=== PATIENT | female | born 1930 | race Caucasian/White ===

== ENCOUNTER → 2018-10-16 | Outpatient (CLI) | payer MEDICARE ==
[~2018-10-16] MED LIST: ALBU0.63 IH; ASPI-1012 PO; CALC-866 PO; CELE200 PO; FISH1CAP27 PO; FURO-151 PO; GABA-533 PO; IRON PO; METH10TA2 PO; METO25TA6 PO; MULT1TAB70 PO; NITR0.4T SL; OXYC30TA89 PO; POLY17PO4 PO; POTASSIUM CLORIDE PO; RANI300T7 PO; SIMV10TA6 PO; TIOT18CA3 IH; TRAM50TA4 PO
[2018-10-16 15:28] LABS: ALBUMIN 3.1 g/dL (3.5-5.0); BILIRUBIN,TOTAL 0.3 mg/dL (0.2-1.0); CREATININE 1.3 mg/dL (0.5-1.5); TOTAL PROTEIN, SERUM 7.7 g/dL (6.0-8.3)
== END | disposition home or self-care (01) ==
LOC: LAB 14:48
PROVIDERS: ATTEND Family Medicine
DX: K76.89 Other specified diseases of liver (principal); R16.0 Hepatomegaly, not elsewhere classified
CPT/HCPCS: 36415; 80053; 82105; 86682

== ENCOUNTER → 2020-06-18 | Outpatient (CLI) | payer MEDICARE ==
[~2020-06-18] VITALS: Ht 154.9 cm; Wt 113.6 kg
[~2020-06-18] MED LIST changes: +CEFAZOLIN SODIUM 1 GM VIAL IVP SCH; +MULT-660 PO; -MULT1TAB70 PO; +OXYC30TA2 PO; -OXYC30TA89 PO; -SIMV10TA6 PO; +SIMV10TA97 PO
[2020-06-18 11:31] LABS: BASOPHILS % (AUTO) 0.2 % (0.0-5.0); EOSINOPHILS % (AUTO) 2.3 % (0.0-8.0); HEMATOCRIT 37.2 % (36-48); LYMPHOCYTES % (AUTO) 24.1 % (21.0-51.0); MEAN CORPUSCULAR HGB CONC 31.2 g/dL (32.0-36.0); MEAN CORPUSCULAR VOLUME 96.1 fL (79-99); MONOCYTES % (AUTO) 8.4 % (3.0-13.0); NEUTROPHILS % (AUTO) 64.4 % (40.0-77.0); PLATELET COUNT (AUTO) 166 K/uL (130-400); RED BLOOD CELL COUNT(AUTO) 3.87 MIL/uL (4.00-5.50); RED CELL DISTRIBUTION WIDTH 12.4 % (11.0-15.5); WHITE BLOOD COUNT (AUTO) 5.1 K/uL (4.8-10.8)
[2020-06-18 11:38] LABS: APPEARANCE,URINE SL CLOUDY (CLEAR); BILIRUBIN,URINE NEGATIVE (NEGATIVE); COLOR,URINE YELLOW (YELLOW); GLUCOSE, URINE (UA) NEGATIVE (NEGATIVE); KETONES,URINE NEGATIVE (NEGATIVE); LEUKOCYTE ESTERASE ,URINE MODERATE (NEGATIVE); NITRATE,URINE POSITIVE (NEGATIVE); OCCULT BLOOD,URINE SMALL (NEGATIVE); PH,URINE 6.5 (5.0-8.0); PROTEIN,URINE NEGATIVE (NEGATIVE); UROBILINOGEN,URINE 0.2 mg/dL (0.2-1.0)
[2020-06-18 11:42] LABS: CREATININE 1.3 mg/dL (0.5-1.5); POTASSIUM 3.5 mmol/L (3.5-5.1)
[2020-06-18 12:22] LABS: BACTERIA,URINE Moderate /HPF (None Seen); WBC,URINE 26-50 /HPF (0-1)
[2020-06-18 12:23] LABS: INR 1.1 (0.85-1.15); PROTHROMBIN TIME 11.7 SEC (9.6-11.6)
[2020-06-24 09:36] VITALS: BP 170/90
== END | disposition home or self-care (01) ==
LOC: EDSTATUS 09:00 → DAH 10:00
PROVIDERS: ATTEND Orthopaedic Surgery
DX: I44.7 Left bundle-branch block, unspecified (principal); Z20.828 Contact with and (suspected) exposure to other viral communicable diseases; G89.29 Other chronic pain
CPT/HCPCS: 36415; 80048; 81001; 85025; 85610; 87077; 87088; 87186; 87641; 93005; U0003; J0690

== ENCOUNTER 2020-09-17 07:35 | Inpatient (IN) | payer MEDICARE ==
[2020-09-16 10:41] LABS: BASOPHILS % (AUTO) 0.2 % (0.0-5.0); EOSINOPHILS % (AUTO) 2.4 % (0.0-8.0); HEMATOCRIT 37.1 % (36-48); MEAN CORPUSCULAR HEMOGLOBIN 30.1 pg (27.0-33.0); MEAN CORPUSCULAR HGB CONC 32.1 g/dL (32.0-36.0); MEAN CORPUSCULAR VOLUME 93.7 fL (79-99); MONOCYTES % (AUTO) 9.7 % (3.0-13.0); NEUTROPHILS % (AUTO) 64.4 % (40.0-77.0); PLATELET COUNT (AUTO) 157 K/uL (130-400); RED BLOOD CELL COUNT(AUTO) 3.96 MIL/uL (4.00-5.50); RED CELL DISTRIBUTION WIDTH 12.9 % (11.0-15.5); WHITE BLOOD COUNT (AUTO) 6.4 K/uL (4.8-10.8)
[2020-09-16 10:46] LABS: APPEARANCE,URINE Clear (CLEAR); BILIRUBIN,URINE Negative (NEGATIVE); COLOR,URINE Yellow (YELLOW); GLUCOSE, URINE (UA) Negative (NEGATIVE); KETONES,URINE Negative (NEGATIVE); LEUKOCYTE ESTERASE ,URINE Large (NEGATIVE); NITRATE,URINE Positive (NEGATIVE); OCCULT BLOOD,URINE Small (NEGATIVE); PH,URINE 7.5 (5.0-8.0); PROTEIN,URINE Trace mg/dL (NEGATIVE)
[2020-09-16 10:51] LABS: CREATININE 1.4 mg/dL (0.5-1.5); POTASSIUM 3.5 mmol/L (3.5-5.1)
[2020-09-16 10:55] LABS: INR 1.14 (0.85-1.15); PROTHROMBIN TIME 11.7 SEC (9.6-11.6)
[2020-09-16 10:58] LABS: BACTERIA,URINE Moderate /HPF (None Seen); WBC,URINE 51-100 /HPF (0-1)
[2020-09-16 13:33] VITALS: BP 163/73
[2020-09-17] VITALS (22 sets, daily range): BP systolic 105–146; BP diastolic 47–88
[~2020-09-17] VITALS: Ht 160 cm; Wt 111.9 kg
[~2020-09-17 07:35] MED LIST changes: +ASCO500C18 PO; -ASPI-1012 PO; -CELE200 PO; +CRAN400C PO; +DICL100G16 TP; -FISH1CAP27 PO; +GENTAMICIN SULFATE 240 MG in 0.9%NACL 100ML 100 ML IV SCH; +GLUC-268 PO; +KRIL1CAP19 PO; +LACT1TAB14 PO; +LYSI100014 PO; +METH-822 PO; -METH10TA2 PO; -MULT-660 PO; +NITR0.4T50 SL; +OMEP40CA21 PO; -POLY17PO4 PO; -TRAM50TA4 PO; +VANCOMYCIN 1G 2 GM in 0.9% NACL 500ML IV.SOLN 500 ML IV SCH; +VITA1CAP20 PO
[2020-09-17] MEDS ORDERED: LACTATED RINGERS 1000ML 1,000 ML IV ONE (08:52)
[2020-09-17] MEDS ORDERED: ACETAMINOPHEN 500 MG TABLET ONE (08:52)
[2020-09-17] MEDS ORDERED: SUGAMMADEX SODIUM 200 MG/2 ML VIAL IV ONE (09:03)
[2020-09-17] MEDS ORDERED: LIDOCAINE PF 100MG/5ML (2%) SYRINGE 5ML ONE (09:05)
[2020-09-17] MEDS ORDERED: SUCCINYLCHOLINE CHLORIDE 20 MG/ML 10 ML VIAL ONE (09:06)
[2020-09-17] MEDS ORDERED: FENTANYL CITRATE PF 50 MCG/1 ML 2ML VIAL ONE (09:06)
[2020-09-17] MEDS ORDERED: PROPOFOL 10 MG/ML 20ML VIAL IV ONE (09:06)
[2020-09-17] MEDS ORDERED: ROCURONIUM 10MG/1ML SYR 10 MG/ML ML ONE (09:06)
[2020-09-17] MEDS ORDERED: TRANEXAMIC ACID 1000MG/10ML ONE (09:31)
[2020-09-17] MEDS: NACL 0.9% IV SCH ×2 (10:00→10:15)
[2020-09-17] MEDS: VANCOMYCIN IV SCH ×2 (10:00→10:15)
[2020-09-17] MEDS ORDERED: CEFAZOLIN SODIUM 1 GM VIAL ONE (10:14)
[2020-09-17] MEDS: ACETAMINOPHEN 500 MG TABLET PO SCH ×2 (11:30→21:05)
[2020-09-17] MEDS ORDERED: LIDOCAINE HCL-MPF 1% 2ML VIAL IV PRN (11:30)
[2020-09-17] MEDS ORDERED: POTASSIUM CHLORIDE 20MEQ/100ML 100 ML IV PRN (11:30)
[2020-09-17] MEDS ORDERED: KCL 20 MEQ ERTAB PO PRN (11:30)
[2020-09-17] MEDS ORDERED: CALCIUM CARB 500MG PO PRN (11:30)
[2020-09-17] MEDS ORDERED: DiphenhydrAMINE HCL 50 MG/ML VIAL IVP PRN (11:30)
[2020-09-17] MEDS ORDERED: TEMAZEPAM 15 MG CAPSULE PO PRN (11:30)
[2020-09-17] MEDS ORDERED: FERROUS FUMARATE 324 MG TABLET PO PRN (11:30)
[2020-09-17] MEDS ORDERED: ONDANSETRON 4MG INJ IVP PRN (11:30)
[2020-09-17] MEDS ORDERED: POTASSIUM CHLORIDE 10% ELIXIR 20 MEQ/15 ML UDCUP PO PRN (11:30)
[2020-09-17] MEDS ORDERED: MEPERIDINE-PF 25 MG/ML SYG ONE ×2 (12:33→12:48)
[2020-09-17] MEDS: 0.9%NACL 1000ML 1,000 ML IV SCH (14:02)
[2020-09-17] MEDS ORDERED: NITROGLYCERIN 0.4 MG SL TAB SL PRN (14:15)
[2020-09-17] MEDS ORDERED: NON-FORMULARY MEDICATION 1 EACH (Omeprazole 40 MG) PO SCH ×2 (14:15→18:30)
[2020-09-17] MEDS ORDERED: ALBUTEROL SULFATE IH SCH ×2 (14:15→18:30)
[2020-09-17] MEDS ORDERED: LACTOBACILLUS ACIDOPHILUS PO SCH ×2 (14:15→18:30)
[2020-09-17] MEDS ORDERED: ASPI-1197 PO (14:16)
[2020-09-17 15:18] LABS: SPECIMENTYPE,BODY FLUID SYNOVIAL
[2020-09-17 15:20] LABS: APPEARANCE BODY FLUID CLOUDY (CLEAR); BODY FLUID WBC 89 /cu. mm.; COLOR,BODY FLUID ORANGE (LT YELLOW); TOTAL VOLUME,BODY FLUID 18 mL
[2020-09-17 15:21] LABS: BODY FLUID RBC 3579 /cu. mm.
[2020-09-17 16:03] LABS: BF LYMPHOCYTE 12 %; BF MONOCYTE 11 %
[2020-09-17 16:12] LABS: CRYSTALS, SYNOVIAL FLUID SEE SEPARATE REPORT
[2020-09-17] MEDS: GABAPENTIN 100 MG CAPSULE PO SCH ×2 (16:30→21:03)
[2020-09-17] MEDS: CEFAZOLIN SODIUM 100 GM IV SCH (16:30)
[2020-09-17] MEDS: METHADONE HCL 10 MG TABLET PO SCH ×2 (16:30→21:24)
[2020-09-17] MEDS ORDERED: NON-FORMULARY MEDICATION 1 EACH (Gabapentin 400 MG) PO SCH (17:00)
[2020-09-17] MEDS ORDERED: VANCOMYCIN 1G/250ML KIT 250 ML IV SCH ×2 (17:30→22:15)
[2020-09-17] MEDS ORDERED: PHARMACY COMMUNICATION MISC SCH (18:00)
[2020-09-17] MEDS ORDERED: VANCOMYCIN 1G/250ML KIT 250 ML IV ONE (20:26)
[2020-09-17] MEDS ORDERED: GUAIFENESIN 600 MG TABLET.ER PO SCH (21:00)
[2020-09-17] MEDS ORDERED: RANITIDINE HCL 300 MG PO SCH (21:00)
[2020-09-17] MEDS: CELECOXIB 200 MG CAP PO SCH (21:04)
[2020-09-17] MEDS: SIMVASTATIN 10 MG TABLET PO SCH (21:04)
[2020-09-17] MEDS: FAMOTIDINE 20MG TAB PO SCH (21:04)
[2020-09-17] MEDS: METOPROLOL TARTRATE 25 MG TAB PO SCH (21:04)
[2020-09-17] MEDS: LACTOBACILLUS RHAMNOSUS GG 1 EACH CAP.SPRINK PO SCH (21:10)
[2020-09-17] MEDS: TRAMADOL HCL 50 MG TABLET PO PRN (21:16)
[2020-09-17] MEDS: OXYCODONE HCL 30 MG TABLET PO PRN (22:36)
[2020-09-18] VITALS: BP 101/56
[2020-09-18] MEDS: CEFAZOLIN SODIUM 100 GM IV SCH (00:44)
[2020-09-18] MEDS: ACETAMINOPHEN 500 MG TABLET PO SCH ×3 (03:30→22:00)
[2020-09-18] MEDS: OXYCODONE HCL 30 MG TABLET PO PRN ×3 (04:17→21:59)
[2020-09-18] MEDS: KETOROLAC 15MG/ML VIAL (15MG/ML) IV PRN ×2 (04:20→10:50)
[2020-09-18 04:28] VITALS: BP 152/62
[2020-09-18 05:25] LABS: HEMATOCRIT 33.6 % (36-48); MEAN CORPUSCULAR HEMOGLOBIN 29.8 pg (27.0-33.0); MEAN CORPUSCULAR HGB CONC 31.5 g/dL (32.0-36.0); MEAN CORPUSCULAR VOLUME 94.4 fL (79-99); RED BLOOD CELL COUNT(AUTO) 3.56 MIL/uL (4.00-5.50); RED CELL DISTRIBUTION WIDTH 13.2 % (11.0-15.5); WHITE BLOOD COUNT (AUTO) 7.2 K/uL (4.8-10.8)
[2020-09-18 05:35] LABS: CREATININE 1.3 mg/dL (0.5-1.5); POTASSIUM 3.9 mmol/L (3.5-5.1)
[2020-09-18] MEDS: 0.9%NACL 1000ML 1,000 ML IV SCH (07:30)
[2020-09-18 07:52] VITALS: BP 132/64
[2020-09-18] MEDS: GABAPENTIN 100 MG CAPSULE PO SCH ×4 (09:00→21:57)
[2020-09-18] MEDS ORDERED: SUB TO IPRATROPIUM 0.5MG/2.5ML PER P&T IH SCH (09:00)
[2020-09-18] MEDS: SPIRIVA IH SCH (09:00)
[2020-09-18] MEDS: METHADONE HCL 10 MG TABLET PO SCH ×4 (09:00→21:58)
[2020-09-18] MEDS ORDERED: NON-FORMULARY MEDICATION 1 EACH (Ascorbic Acid (Vitamin C) 500 MG) PO SCH (09:00)
[2020-09-18] MEDS ORDERED: POTASSIUM CHLORIDE 10 MEQ PO SCH (09:00)
[2020-09-18] MEDS ORDERED: CHOLECALCIFEROL 5000 UNIT PO SCH (09:00)
[2020-09-18 11:15] VITALS: BP 143/69
[2020-09-18] MEDS: METOPROLOL TARTRATE 25 MG TAB PO SCH ×2 (12:48→21:58)
[2020-09-18] MEDS: POTASSIUM CHLORIDE 10MEQ SR TAB PO SCH (12:48)
[2020-09-18] MEDS: LACTOBACILLUS RHAMNOSUS GG 1 EACH CAP.SPRINK PO SCH (12:48)
[2020-09-18] MEDS: LEVOFLOXACIN 500 MG TABLET PO SCH (12:49)
[2020-09-18] MEDS: APIXABAN 2.5 MG TABLET PO SCH ×2 (12:49→21:57)
[2020-09-18] MEDS: ASCORBIC ACID 500 MG TAB PO SCH (12:49)
[2020-09-18] MEDS: ASPIRIN 81MG CHEW TAB PO SCH (12:49)
[2020-09-18] MEDS: FUROSEMIDE 40 MG TABLET PO SCH (12:49)
[2020-09-18] MEDS: CELECOXIB 200 MG CAP PO SCH ×2 (12:49→21:57)
[2020-09-18] MEDS: PANTOPRAZOLE 40 MG TAB DR PO SCH (12:49)
[2020-09-18] MEDS: POLYETHYLENE GLYCOL 3350 17 GM POWD.PACK PO SCH (12:50)
[2020-09-18] MEDS: TRAMADOL HCL 50 MG TABLET PO PRN (14:14)
[2020-09-18 16:07] VITALS: BP 123/56
[2020-09-18] MEDS: ALBUTEROL 0.083% 2.5 MG/3 ML INH IH SCH (16:21)
[2020-09-18 19:42] VITALS: BP 104/52
[2020-09-18] MEDS: SIMVASTATIN 10 MG TABLET PO SCH (21:57)
[2020-09-18] MEDS: FAMOTIDINE 20MG TAB PO SCH (21:58)
[2020-09-19] MEDS: ACETAMINOPHEN 500 MG TABLET PO SCH ×2 (03:30→11:46)
[2020-09-19] MEDS: METHADONE HCL 10 MG TABLET PO SCH ×3 (04:10→16:22)
[2020-09-19] MEDS: OXYCODONE HCL 30 MG TABLET PO PRN ×4 (04:11→16:22)
[2020-09-19] MEDS: GABAPENTIN 100 MG CAPSULE PO SCH ×3 (04:20→16:21)
[2020-09-19] MEDS: ALBUTEROL 0.083% 2.5 MG/3 ML INH IH SCH (06:27)
[2020-09-19 07:30] VITALS: BP 117/39
[2020-09-19] MEDS: METOPROLOL TARTRATE 25 MG TAB PO SCH (09:00)
[2020-09-19] MEDS: SPIRIVA IH SCH (09:00)
[2020-09-19] MEDS: LACTOBACILLUS RHAMNOSUS GG 1 EACH CAP.SPRINK PO SCH (10:05)
[2020-09-19] MEDS: CELECOXIB 200 MG CAP PO SCH (10:05)
[2020-09-19] MEDS: POTASSIUM CHLORIDE 10MEQ SR TAB PO SCH (10:05)
[2020-09-19] MEDS: ASPIRIN 81MG CHEW TAB PO SCH (10:05)
[2020-09-19] MEDS: ASCORBIC ACID 500 MG TAB PO SCH (10:05)
[2020-09-19] MEDS: FUROSEMIDE 40 MG TABLET PO SCH (10:06)
[2020-09-19] MEDS: POLYETHYLENE GLYCOL 3350 17 GM POWD.PACK PO SCH (10:06)
[2020-09-19] MEDS: PANTOPRAZOLE 40 MG TAB DR PO SCH (10:06)
[2020-09-19] MEDS: APIXABAN 2.5 MG TABLET PO SCH (10:06)
[2020-09-19] MEDS: LEVOFLOXACIN 500 MG TABLET PO SCH (10:06)
[2020-09-19] MEDS: KETOROLAC 15MG/ML VIAL (15MG/ML) IV PRN (11:46)
[2020-09-19 12:23] VITALS: BP 129/57
[2020-09-19 16:00] VITALS: BP 94/38
[2020-09-19] MEDS ORDERED: APIX2.5T PO (17:59)
[2020-09-19] MEDS ORDERED: LEVO500T90 PO (18:17)
[2020-09-20] MEDS ORDERED: BISACODYL 10 MG SUPP.RECT RC PRN (11:30)
== END 2020-09-19 19:42 | DRG 488 ==
LOC: DAHIP 07:35 → EDSTATUS 10:00 → 3BH 13:35
PROVIDERS: ADMIT Orthopaedic Surgery; ATTEND Orthopaedic Surgery
PROC: 0SPC09Z Removal of Liner from Right Knee Joint, Open Approach (ICD-10-PCS; principal; 2020-09-17 09:05)
PROC: 0SUV09Z Supplement Right Knee Joint, Tibial Surface with Liner, Open Approach (ICD-10-PCS; 2020-09-17 09:05)
DX: T84.032A Mechanical loosening of internal right knee prosthetic joint, initial encounter (principal); N39.0 Urinary tract infection, site not specified; Z68.42 Body mass index [BMI] 45.0-49.9, adult; T84.062A Wear of articular bearing surface of internal prosthetic right knee joint, initial encounter; E78.5 Hyperlipidemia, unspecified; M79.7 Fibromyalgia; E66.01 Morbid (severe) obesity due to excess calories; M81.0 Age-related osteoporosis without current pathological fracture; M06.9 Rheumatoid arthritis, unspecified; J44.9 Chronic obstructive pulmonary disease, unspecified; Z20.822 Contact with and (suspected) exposure to COVID-19; Z96.652 Presence of left artificial knee joint; G89.29 Other chronic pain; B96.20 Unspecified Escherichia coli [E. coli] as the cause of diseases classified elsewhere; Y83.8 Other surgical procedures as the cause of abnormal reaction of the patient, or of later complication, without mention of misadventure at the time of the procedure; Y92.89 Other specified places as the place of occurrence of the external cause; Z99.81 Dependence on supplemental oxygen; Z82.49 Family history of ischemic heart disease and other diseases of the circulatory system
CPT/HCPCS: 36415; 80048; 81001; 85025; 85027; 85610; 87070; 87071; 87076; 87077; 87088; 87186; 87205; 87426; 87641; 88300; 89051; 89060; 93005; 94640; 94664; 97039; G0378; J0330; J0690; J1580; J1885; J2001; J2175; J2704; J3010; J3370; J3490; J7040; J7050; J7120; U0003